=== PATIENT | female | born 1960 | race Caucasian/White ===

== ENCOUNTER 2019-09-20 05:49 | Observation (INO) | payer BC ==
[2019-09-20] VITALS (7 sets, daily range): BP systolic 122–175; BP diastolic 71–99
[~2019-09-20] VITALS: Ht 162.6 cm; Wt 105.1 kg
[2019-09-20] MEDS ORDERED: PRED20TA PO (05:56)
[2019-09-20] MEDS ORDERED: EPIN0.3P3 IJ (05:56)
[2019-09-20] MEDS ORDERED: dexamethasone sod phosphate 10mg/ml inj IV STA (05:57)
[2019-09-20] MEDS ORDERED: tranexamic acid 100mg/ml inj. IV ONE (06:00)
[2019-09-20] MEDS ORDERED: epiNEPHrine 1 mg/ml inj SQ PRN (06:00)
[2019-09-20] MEDS ORDERED: famotidine/PF 10 mg/ml inj IV ONE (06:00)
[2019-09-20] MEDS ORDERED: diphenhydrAMINE 50 mg/ml inj IV ONE (06:00)
[2019-09-20] MEDS ORDERED: tranexamic acid 1gm/0.7% sal. 100 ML IV ONE (06:05)
[2019-09-20] MEDS ORDERED: epiNEPHrine 1 mg/ml inj IM STA (06:20)
--- NOTE | 2019-09-20 06:25 | NUR ---
blood consent obtained
[2019-09-20] MEDS ORDERED: ALB0.5UD IH (09:11)
[2019-09-20 09:25] LABS: BASOPHILS % (AUTO) 0.2 % (0-1); EOSINOPHILS % (AUTO) 0.1 % (0-6); HEMATOCRIT 45.3 % (35.0-45.0); HEMOGLOBIN 14.9 g/dl (12.0-16.0); LYMPHOCYTES # (AUTO) 1.6 X10'3 (1.1-4.8); LYMPHOCYTES % (AUTO) 9.7 % (21-51); MEAN CORPUSCULAR HEMOGLOBIN 31.1 PG (27.0-31.0); MEAN CORPUSCULAR VOLUME 94.4 FL (78-98); MONOCYTES # (AUTO) 0.1 X10'3 (0-0.9); MONOCYTES % (AUTO) 0.7 % (2-12); NEUTROPHILS % (AUTO) 89.3 % (42-75); PLATELET COUNT 274 X10'3 (140-440); RED CELL DISTRIBUTION WIDTH 13.5 % (11.5-14.5); WHITE BLOOD COUNT 16.8 X10'3 (4.5-11.0)
[2019-09-20 09:42] LABS: ALANINE AMINOTRANSFERASE 33 U/L (12-78); ALBUMIN 3.9 G/DL (3.4-5.0); ALBUMIN/GLOBULIN RATIO 1.1 (1.1-1.5); ALKALINE PHOSPHATASE 70 IU/L (46-116); ANION GAP 9 (8-16); ASPARTATE AMINO TRANSFERASE 23 U/L (10-37); BILIRUBIN,TOTAL 0.4 MG/DL (0.1-1.0); BLOOD UREA NITROGEN 21 MG/DL (7-18); BUN/CREATININE RATIO 18.4 (6.6-38.0); CALCIUM 8.6 MG/DL (8.5-10.1); CHLORIDE 103 MMOL/L (99-107); CREATININE 1.14 MG/DL (0.40-0.90); GLUCOSE 230 MG/DL (70-104); POTASSIUM 3.8 MMOL/L (3.5-5.1); SODIUM 139 MMOL/L (135-145); TOTAL CARBON DIOXIDE 26.9 MMOL/L (24-32); TOTAL PROTEIN 7.4 G/DL (6.4-8.2); eGFR 49 ML/MIN
[2019-09-20] MEDS ORDERED: normal saline 1000ml 1,000 ML IV SCH (10:09)
[2019-09-20] MEDS ORDERED: magnesium Cl slow-release 64mg tablet PO PRN (10:10)
[2019-09-20] MEDS ORDERED: potassium CL 10mEq/100ml bag 100 ML IV PRN ×2 (10:10)
[2019-09-20] MEDS ORDERED: HYDROcodone/acetaminophen 5mg/325mg tablet PO PRN (10:10)
[2019-09-20] MEDS ORDERED: magnesium 4gm in 100ml NS 100 ML IV PRN (10:10)
[2019-09-20] MEDS ORDERED: ondansetron/PF 4mg/2ml inj IV PRN (10:10)
[2019-09-20] MEDS ORDERED: potassium Cl 20 mEq SR tablet PO PRN ×2 (10:10)
[2019-09-20] MEDS ORDERED: magnesium 2GM in 50ml NS 50 ML IV PRN (10:10)
[2019-09-20] MEDS ORDERED: acetaminophen 325mg tablet PO PRN (10:10)
[2019-09-20] MEDS ORDERED: ALBU8.5H8 IH (12:19)
--- NOTE | 2019-09-20 12:27 | NUR ---
Patient in room ED 15. I have received report from Christina OG and had the opportunity to ask questions and assume patient care.
--- NOTE | 2019-09-20 13:00 | NUR ---
Patient arrived to unit, oriented to new room, belongings in cupboard, VS 98.3, 156/93, HR 87, 97% RA, RR 18, no pain, patient lungs clear, patient resting comfortably.
--- NOTE | 2019-09-20 18:00 | NUR ---
Patient in room U 3024. I have received report from EARLE Song and had the opportunity to ask questions and assume patient care. Addendum: 09/21/19 at 0132 by Marylou Mahoney RN Amended: Links added.
--- NOTE | 2019-09-20 18:37 | NUR ---
Problems reprioritized. Patient report given, questions answered & plan of care reviewed with Marylou OG.
[2019-09-20] MEDS: K and/or MAG REPLACEMENT MC SCH (20:00)
--- NOTE | 2019-09-20 20:00 | NUR ---
right lower jaw/facial swelling noted, pt states "it looks alot better". Addendum: 09/21/19 at 0143 by Marylou Mahoney RN Amended: Links added.
[2019-09-20] MEDS: albuterol 2.5 MG/3 ML nebule NEB PRN (21:33)
[2019-09-20] MEDS: diphenhydrAMINE 25mg capsule PO PRN (21:52)
[2019-09-21 02:00] VITALS: BP 161/72
[2019-09-21 05:49] LABS: BASOPHILS % (AUTO) 0.1 % (0-1); EOSINOPHILS % (AUTO) 0.1 % (0-6); HEMATOCRIT 41.8 % (35.0-45.0); HEMOGLOBIN 13.9 g/dl (12.0-16.0); LYMPHOCYTES # (AUTO) 1.6 X10'3 (1.1-4.8); LYMPHOCYTES % (AUTO) 16.8 % (21-51); MEAN CORPUSCULAR HEMOGLOBIN 31.3 PG (27.0-31.0); MEAN CORPUSCULAR HGB CONC 33.3 g/dL (33.0-36.5); MEAN CORPUSCULAR VOLUME 93.8 FL (78-98); MEAN PLATELET VOLUME 8.4 FL (7.4-10.4); MONOCYTES # (AUTO) 0.5 X10'3 (0-0.9); MONOCYTES % (AUTO) 5.5 % (2-12); NEUTROPHILS # (AUTO) 7.5 X10'3 (1.8-7.7); NEUTROPHILS % (AUTO) 77.5 % (42-75); PLATELET COUNT 213 X10'3 (140-440); RED BLOOD COUNT 4.46 X10'6 (4.20-5.60); RED CELL DISTRIBUTION WIDTH 14.2 % (11.5-14.5); WHITE BLOOD COUNT 9.6 X10'3 (4.5-11.0)
[2019-09-21 06:05] LABS: ALBUMIN 3.7 G/DL (3.4-5.0); ANION GAP 9 (8-16); BLOOD UREA NITROGEN 16 MG/DL (7-18); CALCIUM 9.2 MG/DL (8.5-10.1); CHLORIDE 105 MMOL/L (99-107); CREATININE 0.94 MG/DL (0.40-0.90); GLUCOSE 121 MG/DL (70-104); POTASSIUM 4.1 MMOL/L (3.5-5.1); SODIUM 139 MMOL/L (135-145); TOTAL CARBON DIOXIDE 24.6 MMOL/L (24-32); eGFR 61 ML/MIN
--- NOTE | 2019-09-21 06:11 | NUR ---
Problems reprioritized. Patient report given, questions answered & plan of care reviewed with ERALE Song. Addendum: 09/21/19 at 0611 by Marylou Mahoney RN Amended: Links added.
--- NOTE | 2019-09-21 06:25 | NUR ---
Patient in room PCU 3024. I have received report from Marylou OG and had the opportunity to ask questions and assume patient care.
[2019-09-21 07:00] VITALS: BP 167/95
[2019-09-21] MEDS: diphenhydrAMINE 25mg capsule PO PRN (07:14)
[2019-09-21] MEDS: albuterol 2.5 MG/3 ML nebule NEB PRN (07:26)
[2019-09-21] MEDS: K and/or MAG REPLACEMENT MC SCH (08:00)
[2019-09-21 11:00] VITALS: BP 156/77
--- NOTE | 2019-09-21 13:21 | NUR ---
Patient safe for discharge per MD orders, discharge instructions reviewed and questions answered, prescriptions given to patient, tele and PIV DC, belongings collected and sent with patient, walked to lobby, picked up in personal vehicle by .
[2019-09-22] MEDS ORDERED: PRED50TA PO (22:42)
== END 2019-09-21 13:02 | disposition home or self-care (01) ==
LOC: ER 05:50 → ED HOLD 10:09 → PCU 3S 12:40
PROVIDERS: ADMIT Internal Medicine; ATTEND Internal Medicine
DX: L50.0 Allergic urticaria (principal); J45.909 Unspecified asthma, uncomplicated; D72.829 Elevated white blood cell count, unspecified; Z79.899 Other long term (current) drug therapy; Z88.0 Allergy status to penicillin; Z88.2 Allergy status to sulfonamides
CPT/HCPCS: 36415; 36430; 71045; 80048; 80053; 83735; 85025; 86885; 86900; 86901; 87081; 93005; 94640; 94760; 96372; 96374; 96375; 99285; G0378; J0171; J1100; J1200; J3490; J7030; P9059; Q0163

== ENCOUNTER 2019-09-21 17:33 | Emergency (ER) | payer BC ==
[~2019-09-21] VITALS: Ht 162.6 cm; Wt 102.3 kg
[~2019-09-21 17:33] MED LIST: ALB0.5UD IH
[2019-09-21 17:35] VITALS: BP 170/90
[2019-09-21] MEDS ORDERED: diphenhydrAMINE 50 mg/ml inj IM ONE (18:45)
[2019-09-22] MEDS ORDERED: PRED50TA PO (22:42)
== END 2019-09-21 19:05 | disposition home or self-care (01) ==
LOC: ER 17:33
DX: L50.0 Allergic urticaria (principal); M79.89 Other specified soft tissue disorders; Z88.0 Allergy status to penicillin; Z88.2 Allergy status to sulfonamides; Z79.899 Other long term (current) drug therapy
CPT/HCPCS: 96372; 99283; J1200

== ENCOUNTER 2019-09-22 20:21 | Emergency (ER) | payer BC ==
[~2019-09-22] VITALS: Ht 162.6 cm; Wt 100.0 kg
[2019-09-22] MEDS ORDERED: dexamethasone sod phosphate 10mg/ml inj IM STA (21:46)
[2019-09-22] MEDS ORDERED: famotidine 20mg tablet PO ONE (21:50)
[2019-09-22] MEDS ORDERED: diphenhydrAMINE 50 mg/ml inj IM ONE (21:50)
[2019-09-22] MEDS ORDERED: PRED50TA PO (22:42)
[2019-09-22 22:58] VITALS: BP 149/93
== END 2019-09-22 22:59 | disposition home or self-care (01) ==
LOC: ER 20:22
DX: L50.0 Allergic urticaria (principal); Z88.0 Allergy status to penicillin; Z88.2 Allergy status to sulfonamides; Z79.899 Other long term (current) drug therapy
CPT/HCPCS: 96372; 99284; J1100; J1200